=== PATIENT | male | born 1955 | race Asian ===

== ENCOUNTER 2022-04-12 10:59 | Inpatient (IN) | payer OTHER, MEDICARE ==
[~2022-04-12] VITALS: Ht 162.6 cm; Wt 61.7 kg
[2022-04-12 11:42] VITALS: BP_SYST 115
[2022-04-12 12:04] LABS: BASOPHILS % (AUTO) 0.3 % (0.0-2.0); EOSINOPHILS % (AUTO) 0.5 % (0.0-4.0); HEMATOCRIT 41.6 % (36-54); HEMOGLOBIN 14.5 g/dL (14.0-18.0); LYMPHOCYTES # (AUTO) 0.9 K/uL (1.0-5.5); LYMPHOCYTES % (AUTO) 12.4 % (20.5-51.5); MEAN CORPUSCULAR HEMOGLOBIN 30 pg (27-31); MEAN CORPUSCULAR HGB CONC 35 % (32-36); MEAN CORPUSCULAR VOLUME 87 fL (79.0-98.0); MONOCYTES # (AUTO) 0.4 K/uL (0.0-1.0); MONOCYTES % (AUTO) 6.1 % (1.7-9.3); NEUTROPHILS # (AUTO) 5.8 K/uL (1.8-7.7); NEUTROPHILS % (AUTO) 80.7 % (40.0-70.0); PLATELET COUNT (AUTO) 229 K/uL (130-430); RED BLOOD CELL COUNT(AUTO) 4.79 MIL/uL (4.2-6.2); RED CELL DISTRIBUTION WIDTH 12.9 % (9.0-15.0); WHITE BLOOD COUNT (AUTO) 7.1 K/uL (4.8-10.8)
[2022-04-12 12:46] LABS: CALCIUM 8.3 mg/dL (8.4-11.0); CREATININE 0.84 mg/dL (0.55-1.30); POTASSIUM 3.5 mmol/L (3.5-5.1)
[2022-04-12 12:49] LABS: PROTHROMBIN TIME 10.4 SECS (9.5-12.5)
[2022-04-12 12:51] LABS: TOTAL BILIRUBIN 1.5 mg/dL (0.0-1.0)
[2022-04-12] MEDS ORDERED: NACL 0.9% 1,000 ML IV ONE (13:45)
[2022-04-12] MEDS ORDERED: MAG HYDROX/AL HYDROX/SIMETH 30 ML, DICYCLOMINE HCL 20 MG, LIDOCAINE VISCOUS 2% 15ML (PO... PO ONE ×3 (13:45)
[2022-04-12] MEDS ORDERED: FAMO40TA7 PO (14:26)
[2022-04-12] MEDS ORDERED: LOSA1TAB9 PO (14:26)
[2022-04-12] MEDS ORDERED: FAMO-132 PO (14:26)
[2022-04-12] MEDS ORDERED: TAMS0.4C96 PO (14:26)
[2022-04-12] MEDS ORDERED: METF-518 PO (14:26)
[2022-04-12] MEDS ORDERED: PRO40 PO (14:26)
[2022-04-12 17:17] VITALS: BP_SYST 122
[2022-04-12] MEDS ORDERED: PANTOPRAZOLE SODIUM 40 MG/VIAL (PROTONIX) IVP ONE (17:45)
[2022-04-12] MEDS: NACL 0.9% 1,000 ML IV SCH ×2 (18:20→23:46)
[2022-04-12 20:00] VITALS: BP_SYST 131
[2022-04-13] MEDS: NACL 0.9% 1,000 ML IV SCH ×2 (06:33→16:30)
[2022-04-13 06:55] LABS: BASOPHILS % (AUTO) 0.4 % (0.0-2.0); EOSINOPHILS # (AUTO) 0.1 K/uL (0.0-0.4); EOSINOPHILS % (AUTO) 1.6 % (0.0-4.0); HEMATOCRIT 39.4 % (36-54); HEMOGLOBIN 13.5 g/dL (14.0-18.0); LYMPHOCYTES # (AUTO) 1.6 K/uL (1.0-5.5); LYMPHOCYTES % (AUTO) 28.6 % (20.5-51.5); MEAN CORPUSCULAR HEMOGLOBIN 30 pg (27-31); MEAN CORPUSCULAR HGB CONC 34 % (32-36); MEAN CORPUSCULAR VOLUME 87 fL (79.0-98.0); MONOCYTES # (AUTO) 0.5 K/uL (0.0-1.0); MONOCYTES % (AUTO) 9.8 % (1.7-9.3); NEUTROPHILS # (AUTO) 3.3 K/uL (1.8-7.7); NEUTROPHILS % (AUTO) 59.6 % (40.0-70.0); PLATELET COUNT (AUTO) 209 K/uL (130-430); RED CELL DISTRIBUTION WIDTH 12.7 % (9.0-15.0); WHITE BLOOD COUNT (AUTO) 5.5 K/uL (4.8-10.8)
[2022-04-13 08:00] VITALS: BP_SYST 123
[2022-04-13 08:00] LABS: CALCIUM 7.6 mg/dL (8.4-11.0); CREATININE 0.79 mg/dL (0.55-1.30); POTASSIUM 4.3 mmol/L (3.5-5.1)
[2022-04-13 08:05] LABS: PROTHROMBIN TIME 10.3 SECS (9.5-12.5)
[2022-04-13] MEDS ORDERED: fentaNYL CITRATE/PF 100 MCG/2 ML AMP ONE (08:13)
[2022-04-13] MEDS ORDERED: MIDAZOLAM HCL 5 MG/5 ML VIAL ONE (08:14)
[2022-04-13 08:48] LABS: ALBUMIN 3.3 g/dL (3.4-4.8); BILIRUBIN,DIRECT 0.4 mg/dL (0.0-0.3); TOTAL BILIRUBIN 0.7 mg/dL (0.0-1.0)
[2022-04-13] MEDS: PANTOPRAZOLE SODIUM 40 MG TAB PO SCH ×2 (09:00→20:58)
[2022-04-13] MEDS ORDERED: PANTOPRAZOLE SODIUM 40 MG/VIAL (PROTONIX) IVP SCH (09:00)
[2022-04-13] MEDS ORDERED: METO25TA3 PO (11:03)
[2022-04-13] MEDS ORDERED: SIMV10TA2 PO (11:03)
[2022-04-13] MEDS ORDERED: LEVO75TA7 PO (11:03)
[2022-04-13] MEDS ORDERED: EZET1TAB22 PO (11:03)
[2022-04-13 12:00] VITALS: BP_SYST 131
[2022-04-13] MEDS ORDERED: PANTOPRAZOLE SODIUM 40 MG/VIAL (PROTONIX) IVP ONE (15:00)
[2022-04-13] MEDS: MORPHINE 2 MG/ML INJ. SYRINGE IVP PRN (15:20)
[2022-04-13 16:00] VITALS: BP_SYST 120
[2022-04-13 20:15] VITALS: BP_SYST 131
[2022-04-14 00:11] VITALS: BP_SYST 101
[2022-04-14] MEDS: NACL 0.9% 1,000 ML IV SCH ×3 (00:30→20:08)
[2022-04-14] MEDS: MORPHINE 2 MG/ML INJ. SYRINGE IVP PRN ×4 (06:24→20:06)
[2022-04-14 07:52] VITALS: BP_SYST 140
[2022-04-14] MEDS: PANTOPRAZOLE SODIUM 40 MG TAB PO SCH ×2 (08:05→20:15)
[2022-04-14 12:20] VITALS: BP_SYST 130
[2022-04-14 15:30] VITALS: BP_SYST 119
[2022-04-14] MEDS: SUCRALFATE 1 GM TABLET PO SCH ×2 (16:02→20:14)
[2022-04-14 20:17] VITALS: BP_SYST 132
[2022-04-14] MEDS: TEMAZEPAM 7.5 MG CAPSULE PO PRN (21:32)
[2022-04-15] MEDS: MORPHINE 2 MG/ML INJ. SYRINGE IVP PRN ×6 (00:03→21:07)
[2022-04-15 00:04] VITALS: BP_SYST 106
[2022-04-15] MEDS: NACL 0.9% 1,000 ML IV SCH ×4 (04:05→21:08)
[2022-04-15] MEDS: SUCRALFATE 1 GM TABLET PO SCH ×4 (06:03→21:05)
[2022-04-15 07:49] VITALS: BP_SYST 121
[2022-04-15 07:50] LABS: BASOPHILS % (AUTO) 0.7 % (0.0-2.0); EOSINOPHILS # (AUTO) 0.2 K/uL (0.0-0.4); EOSINOPHILS % (AUTO) 3.9 % (0.0-4.0); HEMATOCRIT 37.7 % (36-54); HEMOGLOBIN 12.8 g/dL (14.0-18.0); LYMPHOCYTES # (AUTO) 1.3 K/uL (1.0-5.5); LYMPHOCYTES % (AUTO) 26.4 % (20.5-51.5); MEAN CORPUSCULAR HEMOGLOBIN 30 pg (27-31); MEAN CORPUSCULAR HGB CONC 34 % (32-36); MEAN CORPUSCULAR VOLUME 88 fL (79.0-98.0); MONOCYTES # (AUTO) 0.5 K/uL (0.0-1.0); MONOCYTES % (AUTO) 10.6 % (1.7-9.3); NEUTROPHILS # (AUTO) 2.8 K/uL (1.8-7.7); NEUTROPHILS % (AUTO) 58.4 % (40.0-70.0); PLATELET COUNT (AUTO) 186 K/uL (130-430); RED BLOOD CELL COUNT(AUTO) 4.27 MIL/uL (4.2-6.2); RED CELL DISTRIBUTION WIDTH 12.8 % (9.0-15.0); WHITE BLOOD COUNT (AUTO) 4.7 K/uL (4.8-10.8)
[2022-04-15 08:04] LABS: CALCIUM 7.7 mg/dL (8.4-11.0); CREATININE 0.69 mg/dL (0.55-1.30); POTASSIUM 4.2 mmol/L (3.5-5.1)
[2022-04-15] MEDS: PANTOPRAZOLE SODIUM 40 MG TAB PO SCH ×2 (08:12→21:05)
[2022-04-15 16:00] VITALS: BP_SYST 122
[2022-04-15 20:00] VITALS: BP_SYST 136
[2022-04-15] MEDS: TEMAZEPAM 7.5 MG CAPSULE PO PRN (21:43)
[2022-04-16] VITALS: BP_SYST 124
[2022-04-16 00:11] VITALS: BP_SYST 94
[2022-04-16] MEDS: MORPHINE 2 MG/ML INJ. SYRINGE IVP PRN (01:05)
[2022-04-16] MEDS: SUCRALFATE 1 GM TABLET PO SCH ×3 (06:11→17:17)
[2022-04-16] MEDS ORDERED: NALOXONE HCL 0.4 MG/ML AMP (NARCAN) IVP PRN (07:15)
[2022-04-16] MEDS ORDERED: HYDROcodone/ACETAMIN 5-325 MG TAB (NORCO/ VICODIN) PO PRN ×2 (07:15)
[2022-04-16 07:49] VITALS: BP_SYST 147
[2022-04-16] MEDS: PANTOPRAZOLE SODIUM 40 MG TAB PO SCH (08:07)
[2022-04-16] MEDS: NACL 0.9% 1,000 ML IV SCH ×2 (08:08→16:30)
[2022-04-16] MEDS ORDERED: SIMETHICONE 80 MG TAB.CHEW PO PRN (09:45)
[2022-04-16 16:42] VITALS: BP_SYST 159
[2022-04-16 20:26] VITALS: BP_SYST 146
== END 2022-04-16 20:50 | disposition home or self-care (01) | DRG 377 ==
LOC: SED 10:59 → STU 16:22
PROVIDERS: ADMIT Internal Medicine; ATTEND Internal Medicine
PROC: 0DB78ZX Excision of Stomach, Pylorus, Via Natural or Artificial Opening Endoscopic, Diagnostic (ICD-10-PCS; 2022-04-13)
PROC: 0DB58ZX Excision of Esophagus, Via Natural or Artificial Opening Endoscopic, Diagnostic (ICD-10-PCS; principal; 2022-04-13 08:00)
DX: K25.4 Chronic or unspecified gastric ulcer with hemorrhage (principal); K21.01 Gastro-esophageal reflux disease with esophagitis, with bleeding; E87.1 Hypo-osmolality and hyponatremia; K29.71 Gastritis, unspecified, with bleeding; K22.11 Ulcer of esophagus with bleeding; Z20.822 Contact with and (suspected) exposure to COVID-19; Z79.899 Other long term (current) drug therapy; Z88.8 Allergy status to other drugs, medicaments and biological substances
CPT/HCPCS: 36415; 43239; 71250-TC; 76376; 76700-TC; 80048; 80053; 80076; 82150; 83605; 83690; 85025; 85610-TC; 85730-TC; 86886; 86900; 86901; 87081; 88160; 88305; 88312; 88313; 93880; 96360; 99285; C9113; G0378; J2001; J2250; J2270; J3010